=== PATIENT | female | born 1985 | race Caucasian/White ===

== ENCOUNTER 2017-01-09 12:19 | Emergency (ER) | payer OTHER ==
[~2017-01-09] VITALS: Ht 175.3 cm; Wt 52.6 kg
[2017-01-09 12:23] VITALS: BP 139/105; PULSE 97; RESP 18; TEMP 98.8; O2SAT 98
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
[2017-01-09] MEDS ORDERED: IBUPROFEN 600 MG TAB PO ONE (12:45)
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
[2017-01-09] MEDS ORDERED: IBUP-232 PO (13:09)
== END 2017-01-09 13:25 | disposition home or self-care (01) ==
LOC: PHEFT 12:19
DX: S16.1XXA Strain of muscle, fascia and tendon at neck level, initial encounter (principal); R51 Headache; F17.210 Nicotine dependence, cigarettes, uncomplicated; V49.49XA Driver injured in collision with other motor vehicles in traffic accident, initial encounter; Y93.89 Activity, other specified
CPT/HCPCS: 70450